=== PATIENT | male | born 1945 | race Native Hawaiian/Other Pacific Islander ===

== ENCOUNTER 2020-09-22 04:17 | Emergency (ER) | payer OTHER ==
[~2020-09-22] VITALS: Ht 165.1 cm; Wt 79.6 kg
[~2020-09-22 04:17] MED LIST: AMLO2.5T PO; ASPIRIN325 M1 OR; LISI20TA11 PO; METHYL B-121000 MCG PO
[2020-09-22 04:18] VITALS: BP 157/75; TEMP 98.1
[2020-09-22 05:17] LABS: POTASSIUM 3.8 mmol/L (3.6-5.2)
[2020-09-22 07:03] LABS: PLATELET COUNT 168 K/uL (142-355)
[2020-09-22] MEDS ORDERED: DONE5TAB PO (10:12)
[2020-09-22] MEDS ORDERED: DIVA250T PO (10:12)
[2020-09-22] MEDS ORDERED: NAMENDA10 MG PO (10:14)
[2020-09-22] MEDS ORDERED: PANTOPRAZOLE 40MG TA PO (10:15)
[2020-09-22] MEDS ORDERED: AMLO2.5T PO (10:17)
[2020-09-22] MEDS ORDERED: ASPIR-8181 MG PO (10:18)
== END 2020-09-22 08:37 | disposition other institution (70) ==
LOC: ED 04:17
PROVIDERS: Family Medicine
DX: R46.89 Other symptoms and signs involving appearance and behavior (principal); U07.1 COVID-19; I48.91 Unspecified atrial fibrillation; Z11.59 Encounter for screening for other viral diseases; Z04.6 Encounter for general psychiatric examination, requested by authority
CPT/HCPCS: 80053; 81000; 85027; 87635; 93005; 99283; 99285; U0003